=== PATIENT | female | born 2005 | race Hispanic/Latino ===

== ENCOUNTER 2024-02-02 19:50 | Emergency (ER) | payer OTHER, SELFPAY ==
[2024-02-02 19:52] VITALS: BP 114/74
[2024-02-02 20:37] LABS: ALT (SGPT) 67 U/L (0-35); AST (SGOT) 44 U/L (14-36); Albumin 4.1 g/dl (3.5-5.0); Alkaline Phosphatase 93 U/L (38-126); Blood Urea Nitrogen 8 mg/dl (7-17); Calcium 9.3 mg/dl (8.4-10.2); Carbon Dioxide 24 mmol/L (22-30); Chloride 103 mmol/L (98-107); Glucose 106 mg/dl (70-99); HCG, Serum Qualitative Screen Negative; Potassium 4.2 mmol/L (3.5-5.1); Sodium 142 mmol/L (135-145); Total Bilirubin 0.5 mg/dl (0.2-1.3); Total Protein 7.2 g/dl (6.3-8.2); eGFR > 60.00
[2024-02-02 20:49] LABS: Hematocrit 30.6 % (37.0-47.0); Hemoglobin 10.5 g/dL (12.0-16.0); Mean Corp Hgb Conc. 34.3 g/dL (33.0-37.0); Mean Corpuscular Volume 84.5 fL (81.0-99.0); Red Blood Cell Count 3.62 10^6/uL (4.20-5.40); Red Cell Dist. Width 13.2 % (11.5-14.5); White Blood Cell Count 8.3 10^3/uL (4.8-10.8)
[2024-02-02 20:50] LABS: % Basophils 0.4 % (0-2); % Eosinophils 1.3 % (0-6); % Immature Granulocytes 0.4 % (0-0.5); % Lymphocytes 15.4 % (20.5-51.1); % Monocytes 5.1 % (1.7-9.3); % Neutrophils 77.4 % (42.2-75.2); Absolute Eosinophils 0.1 10^3/uL (0-0.7); Absolute Lymphocytes 1.3 10^3/uL (1.2-3.4); Absolute Monocytes 0.4 10^3/uL (0.1-0.6); Absolute Neutrophils 6.4 10^3/uL (1.4-6.5); Nucleated Red Blood Cells % 0 %
[2024-02-02 21:13] VITALS: BMI 22.5
--- NOTE | 2024-02-02 21:24 | ED.GENMED ---
History of Present Illness
General
Chief Complaint: Fever
Source: patient and spouse
Time Seen by Provider: 02/02/24 21:13
History of Present Illness
History of Present Illness:
18yoF with no significant past medical history presenting with her for evaluation of a cough. Symptoms initially began 8 days ago. She was seen at urgent care 5 days ago and was prescribed Augmentin x 10 days which she has been compliant
with. Her symptoms have been worsening over the past 3 days. Her cough was initially dry but is now intermittently productive of green sputum. She also reports sharp left-sided chest pain with coughing and breathing. Patient has been having
fevers over the course of her illness with a Tmax of 103 four days ago. Patient is otherwise asymptomatic and denies any abdominal pain, vomiting, diarrhea, rashes. Her daughter was also sick recently. No recent travel.
Phy Exam
General Physical Exam
General Presentation: well appearing and no apparent distress
General age: appears stated age
General Skin: warm and dry
General Habitus: normal
General Mental: alert
ENT Exam
ENT Exam: normocephalic
Cardiovascular Exam
Cardiovascular Exam: no murmur and tachycardia
Pulmonary Exam
Pulmonary Exam: no respiratory distress, chest non tender and other (Rales noted to R lung base. Speaking in full sentences without difficulty. )
Neurological Exam
Neurological Exam: alert
Peace Coma Scale
Eye Opening: Spontaneous
Verbal Response: Oriented
Motor Response: Obeys Commands
GCS Total Score: 15
Skin Exam
Skin Exam: normal color and warm/dry
Psychiatric Exam
Psychiatric Exam: normal mood/affect
Course
Orders/Labs/Results
Orders:
Orders
02/02/24 19:59
Test Result ONCE
CR Chest - 2 Views Urgent
Comment:
Reason For Exam: shortness of breath
02/02/24 20:06
Complete Blood Count/With Diff Urgent
Comprehensive Metabolic Panel Urgent
HCG, Serum Qualitative Screen Urgent
02/02/24 21:57
COVID-19 Antigen Urgent
Source: Nasal Swab
Influenza A+B Rapid Molecular Urgent
PATRICK Source: Nasal Swab
Specimen Description:
02/02/24 23:03
Acetaminophen [Tylenol] 1,000 mg PO NOW STA
02/02/24 23:25
Doxycycline [Vibramycin] 100 mg PO NOW STA
Abnormal Lab Results
02/02/24
20:06
RBC 3.62 L 10^6/uL
(4.20-5.40)
Hgb 10.5 L g/dL
(12.0-16.0)
Hct 30.6 L %
(37.0-47.0)
Neutrophils % 77.4 H %
(42.2-75.2)
Lymphocytes % 15.4 L %
(20.5-51.1)
Creatinine 0.5 L mg/dL
(0.6-1.0)
Glucose 106 H mg/dl
(70-99)
AST 44 H U/L
(14-36)
ALT 67 H U/L
(0-35)
02/02/24 20:06
02/02/24 20:06
Vital Signs
Initial and Last Documented VS:
Initial Vital Signs
Temp Pulse Resp BP Pulse Ox
98.8 F 104 16 114/74 95
02/02/24 19:52 02/02/24 19:52 02/02/24 19:52 02/02/24 19:52 02/02/24 19:52
Last Documented Vital Signs
Temp Pulse Resp BP Pulse Ox
100.4 F H 100 24 113/74 90
02/02/24 22:59 02/02/24 22:59 02/02/24 22:59 02/02/24 22:01 02/02/24 22:59
MDM/Problems Addressed
Differential Diagnosis Includes:
18yoF here with worsening cough and fever. Currently on Augmentin which was prescribed by urgent care. Also c/o chest pain with coughing. Oxygen saturation 95% in triage. HR 104, remainder of vitals stable. She is well appearing in no distress.
Rales noted on lung exam. Respirations nonlabored. Differential diagnosis includes but is not limited to: Pneumonia, bronchitis, viral illness
Initial ED plan: CBC CMP obtained in triage. White count is normal. Mild transaminitis noted. Will check COVID/flu swab and chest x-ray.
*Critical Care Note
Total Time (30-74mins, 75-104mins- exclusive of procedures): Not Applicable
Update Note
Update Note:
Chest x-ray shows a right upper lobe pneumonia. COVID and flu testing negative. Oxygen saturation documented as 90% although patient has nail lao on. Patient reassessed and no respiratory distress noted. Ambulatory pulse ox checked and
patient maintain oxygen saturation 94 to 97% throughout. No indication for hospitalization at this time. Will add on doxycycline for atypical coverage. Supportive care discussed. Advise close follow-up with PCP and strict ED return precautions
discussed. Patient expressed understanding and is agreeable to plan. She was discharged in stable condition.
ED Attending Note
-
Portions of this chart may have been created with voice recognition software.� Occasional wrong word or��sound alike� substitutions may have occurred due to the inherent limitations of voice recognition software.
Discharge Plan
Departure
Patient Disposition: Home (Routine Discharge)
Date of Disposition: 02/02/24
Time of Disposition: 23:25
Patient with high blood pressure during this ER visit?: No
Discharge Problem:
Community acquired pneumonia
Instructions: Pneumonia in adults
Prescriptions:
New
doxycycline hyclate 100 mg capsule
100 mg PO BID Qty: 14 0RF
Referrals:
Samantha Cardona MD [Family Provider] -
Activity Restrictions/Additional Instructions:
Continue taking Augmentin and start taking doxycycline. Take Tylenol and ibuprofen as needed for fevers/pain. Drink plenty of fluids and rest.
Please follow-up with your family doctor in 3-4 days. Return to the ER with any worsening symptoms or trouble breathing.
Interventions
Interventions:
*Risk Screen - Suicide Last Done: 02/02/24 21:04
*General Assessment Last Done: 02/02/24 21:04
*Neglect/Abuse Screening Last Done: 02/02/24 21:04
ED- Fall Risk Assessment Last Done: 02/02/24 21:04
*ED COVID-19 Vaccine History Last Done: 02/02/24 21:04
*Nursing Disposition Last Done: 02/02/24 23:31
ED- Neurological Assessment Last Done: 02/02/24 21:04
ED-Skin Assessment Last Done: 02/02/24 21:04
Discharge Date and Time
Discharge Date/Time: 02/02/24 23:32
Print Language: KHMER
[2024-02-02 22:01] VITALS: BP 113/74
[2024-02-02 22:23] LABS: COVID-19 Antigen Negative (Negative)
[2024-02-02] MEDS: TYLENOL 1000 MG PO (23:08)
--- NOTE | 2024-02-02 23:15 | EDRN ---
patient when ambulating-- room air pulse ox 97%
[2024-02-02] MEDS: VIBRAMYCIN 100 MG PO (23:29)
== END 2024-02-02 23:32 | disposition home or self-care (01) ==
LOC: EMR 19:50
PROVIDERS: Emergency Medicine; Physician Assistant; EMERGENCY PHYSICIAN Emergency Medicine; FAMILY PHYSICIAN Family Medicine
DX: J18.9 Pneumonia, unspecified organism (principal)
CPT/HCPCS: 99283; 71046; 80053; 84703; 85025; 87502; 87811